=== PATIENT | male | born 1965 | race Caucasian/White ===

== ENCOUNTER 2024-09-25 07:57 | Day surgery (SDC) | payer OTHER ==
[2024-09-22 15:28] LABS: Absolute Lymphocytes (CBC) 1.6 K/uL (0.7-4.9); Hematocrit 43.7 % (39.6-49.0); Hemoglobin 14.8 g/dL (13.6-17.9); MCH 30.5 pg (27.0-35.0); MCHC 33.8 g/dL (32.0-36.0); MCV 90.0 fL (80-100); MPV 7.8 fL (7.6-11.3); Nucleated RBC Absolute Count 0.0 (0-0); Nucleated Red Blood Cells % 0.1 % (0-0); RBC Red Blood Cell Count 4.85 M/uL (4.33-5.43); White Blood Count 5.60 thou/uL (4.3-10.9)
[2024-09-22 15:42] LABS: Anion Gap 10.0 mEq/L (5.0-15.0); BUN Blood Urea Nitrogen 14.0 mg/dL (7-18); Glucose Level 99.0 mg/dL (74-106); Potassium 4.0 mEq/L (3.5-5.1)
[2024-09-25] MEDS: Ringers Lactate 1,000 ML IV ONE (08:40)
[2024-09-25] MEDS ORDERED: LIDOCAINE 1% MPF 5 ML VIAL ONE (09:21)
[2024-09-25 10:41] VITALS: TEMP 97.1
[2024-09-25 11:16] VITALS: BP 120/74; O2SAT 99
== END 2024-09-25 11:00 | disposition home or self-care (01) ==
LOC: OR 07:57
PROVIDERS: ATTEND Surgery
PROC: 0DJD8ZZ Inspection of Lower Intestinal Tract, Via Natural or Artificial Opening Endoscopic (ICD-10-PCS; principal; 2024-09-25 09:15)
DX: Z12.11 Encounter for screening for malignant neoplasm of colon (principal); K64.4 Residual hemorrhoidal skin tags; K64.8 Other hemorrhoids
CPT/HCPCS: 93005; 85025; 80048; 36415; 45378; J2704; J2003; J7120